=== PATIENT | female | born 1965 | race Caucasian/White ===

== ENCOUNTER 2016-11-08 07:27 | Day surgery (SDC) | payer MEDICAID, OTHER ==
--- NOTE | 2016-03-13 08:39 | PREOPHP ---
DATE OF ADMISSION: 03/16/2016 The patient is coming on 03/16/2016 for a procedure. HISTORY OF PRESENT ILLNESS: This is a 50-year-old female 1, para 1. This patient had been e valuated recently for pelvic dystrophy, vulvar dystrophy, and a cervical polyp with a history of fibr oids. Her last menstrual period was October 2015, and she has been having white discoloration of he r vulvar area and pubis. She had been treated with Elocon cream, and D and C hysteroscopy was advise d due to cervical polyp that was large and was possibly coming out of the uterus with an ultrasound s howing thick and complex endometrium with fluid and fixed exchanges. These findings were indetermina te, and a further study was estimated with a D and C hysteroscopy. The ultrasound otherwise found no rmal ovaries and the uterus to be slightly larger compared to prior examination and with the endometr ial hyperplasia. The patient had a vulvar excision biopsy that revealed that she had human papilloma virus effect and polyploid intradermal nevus. The patient had a history of having 1 , and she is on Omeprazole, Tylenol, and ranitidine. The patient is on medication for bowel movement and s ertraline for depression. She has been on Depo-Provera to avoid bleeding since she was seen perimeno pausal. REVIEW OF SYSTEMS: The patient has no urinary problems. No cardiovascular problems. No lung proble ms. No GI problems. No neurological or orthopedic problems nor endocrine problems. She had a histo ry of ulcers. ALLERGIES: SHE HAS NO ALLERGIES. SOCIAL HISTORY: She has no history of drug addiction, smoking, or drinking. FAMILY HISTORY: Noncontributory. PHYSICAL EXAMINATION: VITAL SIGNS: Blood pressure of 150/90, controlled with some medication with hydrochlorothiazide. Th e patient weighs 141. She is 5 feet tall. Pulse is 80. She is afebrile. HEAD AND NECK: Normal. CHEST: Clear. HEART: Normal sinus rhythm. LUNGS: Clear. BREASTS: Soft, nontender, no masses. ABDOMEN: Soft, nontender, no masses. PELVIC: External genitalia with some discoloration of the skin around the external vulval area and p ubic area. Vagina with atrophy. Cervix with polyps. Uterus with all fibroids retroverted, normal s ize. Adnexa are negative. RECTAL: Normal. EXTREMITIES: Normal. DIAGNOSES: 1. Endometrial hyperplasia. 2. Vulvar dystrophy. 3. All fibroid uterus. 4. Perimenopausal syndrome. PLAN: She is undergoing a D and C hysteroscopy to rule out malignancy. She has been advised of the possible risks and possible complications of the surgery with her alternatives and options. Written information was provided. She had no more questions and agreed to go ahead with the procedure with f ull understanding and no more questions. Dictated By: GANESH JACQUES/CECIL Conf#: [id number] DID#: [id number]
--- NOTE | 2016-11-04 07:07 | PREOPHP ---
DATE OF ADMISSION: 11/08/2016 HISTORY OF PRESENT ILLNESS: This is a 51-year-old female, 1, para 1. This patient has seen me lately with perimenopausal syndrome, with lots bleeding, a history of a very large uterus, and e ndometrial thickening with endometrial hyperplasia, cervical polyps and vulvar dystrophy. This pablito ent has been treated with a Depo shot, and still has not been able to stop her bleeding, and for all these reasons, she has been advised for a D and C hysteroscopy. The patient had a previous cesarea n section. MEDICATIONS: She is on: 1. Omeprazole. 2. Tylenol. 3. Ranitidine. 4. Valsartan. 5. Bisoprolol. ALLERGIES: SHE IS NOT ALLERGIC TO ANY MEDICATION. REVIEW OF SYSTEMS: She has no urinary symptoms. No cardiovascular problems. No lung problems. No GI, neurological, orthopedic, or endocrine problems. She has a history of ulcer, for which she is on ranitidine. She has been lately on depression medication, and Depo-Provera to avoid and control her bleeding. SOCIAL HISTORY: She does not drink or smoke. No history of drugs. FAMILY HISTORY: Noncontributory. PHYSICAL EXAMINATION: VITAL SIGNS: The blood pressure is 128/80. She weighs 142. She is 5 feet. She is afebrile. HEAD AND NECK: Normal. CHEST: Clear. HEART: Normal sinus rhythm. LUNGS: Clear. BREASTS: Soft, nontender, no masses. ABDOMEN: Soft, nontender, no masses. PELVIC: With discoloration of the skin around the external vulvar area and pubic area. Vaginal are a is with atrophy. Cervix with polyps. Uterus with fibroids, retroverted, normal size. Adnexa are negative. RECTAL: Normal. EXTREMITIES: Normal. DIAGNOSES: 1. Endometrial hyperplasia. 2. Fibroid uterus. 3. Vulvar dystrophy. 4. Perimenopausal syndrome. PLAN: She is undergoing a D and C hysteroscopy to rule out malignancy. She has been advised of the possible risks and possible complications of the surgery, with her alternatives and options. Lester en information was provided. She had no more questions and agreed to go ahead with the procedure wi th full understanding, and no more questions. Dictated By: GANESH CHRIS MD [facility] Conf#: [id number] [facility]#: [id number]
[~2016-11-08] VITALS: Ht 152.4 cm; Wt 63.7 kg
[2016-11-08] VITALS (17 sets, daily range): BP systolic 105–155; BP diastolic 71–109; PULSE 66–84; RESP 10–18; Ht 152.4 cm; Wt 63.7 kg
[~2016-11-08 07:27] MED LIST: ASPI-535 PO; CEFAZOLIN 1 GM INJ ONE; CEFAZOLIN 2 GM/50 ML (PMX) 50 ML IVPB ONE; GEMF600T60 PO; IBUP-1542 PO; LORA10TA3 PO; OMEP10CA4 PO; ONDANSETRON 4 MG INJ ONE; ORPH100T PO; RANI300T PO; SERT50TA6 PO
[2016-11-08] MEDS ORDERED: DEXTROSE 5%-0.9% NACL 1,000 ML IV SCH (08:30)
[2016-11-08] MEDS ORDERED: SERT50TA6 PO (08:48)
[2016-11-08] MEDS ORDERED: RANI300T3 PO (08:48)
[2016-11-08] MEDS ORDERED: DOCU-159 PO (08:48)
[2016-11-08] MEDS ORDERED: POLY17PO6 PO (08:48)
[2016-11-08] MEDS ORDERED: PANT40TA4 PO (08:48)
[2016-11-08] MEDS ORDERED: GEMF600T60 PO (08:48)
[2016-11-08] MEDS ORDERED: PROPOFOL 60 ML ONE (09:18)
[2016-11-08] MEDS ORDERED: FENTAnyl 50 MCG/ML VIAL ONE ×2 (09:19→10:27)
[2016-11-08] MEDS ORDERED: LIDOCAINE 2% (SDV) 5 ML INJ ONE (09:19)
[2016-11-08] MEDS ORDERED: DEXAMETHASONE 4 MG/ML 1 ML INJ ONE (09:44)
[2016-11-08] MEDS ORDERED: KETOROLAC 30 MG INJ ONE (09:55)
--- NOTE | 2016-11-08 10:13 | PD.PPDC ---
RENAL CASE MANAGER Discharge Instruction Condition Patient Condition: Good Diet Diet: Resume Regular Diet Activity/Restrictions Activity: Normal Activity May Shower Restrictions: No Exercising No Lifting No Driving No Sexual Activity Nothing in the Vagina No [place] No Tampons, douche Follow-up Follow-up with Physician: 2, Week/Weeks Return to clinic for HEADSTART TEACHER Instructions: Fever greater than 101 Chills Worsening abdominal pain Excessive Vaginal Bleeding More than 2 pads per hour Unable to tolerate diet GANESH CHRIS MD Nov 08, 2016 10:12
--- NOTE | 2016-11-08 10:17 | OPPN ---
Date/Time of Note Date/Time of Note DATE: 11/08/16 TIME: 10:14 Operative/Procedure Note FRACTIONAL D&C HYSTEROSCOPY Pre-Operative Diagnosis ENDOMETRIAL HYPERPLASIA FIBROID UTERUS Post-Operative Diagnosis SAME Surgeon: GANSEH CHRIS MD Estimated blood loss: minimal Specimens ENDOMETRIAL CURETTINGS AND CERVICAL POLYPS Complications: None Anesthesia type: general GANESH CHRIS MD Nov 08, 2016 10:17
[2016-11-08] MEDS ORDERED: ONDANSETRON 4 MG INJ IV PRN (10:30)
[2016-11-08] MEDS ORDERED: LABETALOL HCL 20MG INJ IV PRN (10:30)
[2016-11-08] MEDS ORDERED: MEPERIDINE 25 MG INJ IV PRN (10:30)
[2016-11-08] MEDS ORDERED: OXYCODONE/ACETAMINOPHEN (5/325) TAB PO PRN (10:30)
[2016-11-08] MEDS ORDERED: FENTAnyl 50 MCG/ML VIAL IV PRN ×2 (10:30)
[2016-11-08] MEDS ORDERED: KETOROLAC 30 MG INJ IV PRN (10:30)
[2016-11-08] MEDS: FENTAnyl 50 MCG/ML VIAL IV PRN ×2 (10:32→10:40)
--- NOTE | 2016-11-08 13:43 | RADRPT ---
Vent Rate: 65 bpm RR Interval: 0 msec ND Interval: 148 msec QRS Duration: 82 msec QT Interval: 384 msec QTC Interval: 399 msec P-R-T [place]: 53 - 91 - 49 degrees Normal sinus rhythm Nonspecific T wave abnormality Abnormal ECG Electronically Signed By: Reji Santiago [id number]
== END 2016-11-08 11:53 | disposition home or self-care (01) ==
LOC: SDS 07:27
PROVIDERS: ATTEND Obstetrics & Gynecology
DX: N85.00 Endometrial hyperplasia, unspecified (principal); D25.9 Leiomyoma of uterus, unspecified; N95.0 Postmenopausal bleeding
CPT/HCPCS: 58120; 88305; 93005; J0690; J1100; J1885; J2175; J2405; J3010; Z7512; Z7610

== ENCOUNTER 2017-04-14 06:16 | Emergency (ER) | payer OTHER ==
[~2017-04-14] VITALS: Ht 165.1 cm; Wt 66.0 kg
[~2017-04-14 06:16] MED LIST changes: -ASPI-535 PO; -CEFAZOLIN 1 GM INJ ONE; -CEFAZOLIN 2 GM/50 ML (PMX) 50 ML IVPB ONE; +DOCU-159 PO; -IBUP-1542 PO; -LORA10TA3 PO; -OMEP10CA4 PO; -ONDANSETRON 4 MG INJ ONE; -ORPH100T PO; +PANT40TA4 PO; +POLY17PO6 PO; -RANI300T PO; +RANI300T3 PO
[2017-04-14 06:23] VITALS: Ht 165.1 cm; Wt 66.0 kg
[2017-04-14 06:54] LABS: URINE BLOOD (Dip) POC 2+ (NEGATIVE)
[2017-04-14] MEDS ORDERED: IBUPROFEN 600 MG TAB PO ONE (08:00)
--- NOTE | 2017-04-14 08:21 | RADRPT ---
PROCEDURE: CT Abdomen and Pelvis without contrast. CLINICAL INDICATION: Abdominal pain. TECHNIQUE: CT scan of the abdomen and pelvis without contrast was performed on a multidetector hig h-resolution CT scanner. The patient was scanned without intravenous contrast. Coronal and sagittal reformatted images were obtained from the axial source images. Images were reviewed on a high-resol Fullscreen PACS workstation. One or more of the following dose reduction techniques were used: Automated exposure control, adjustment of the mA and/or kV according to patient size, use of iterative recon struction technique. The total exam CTDI equals 8.86 mGy and the total exam DLP equals 433.66 mGy-c m. COMPARISON: None. FINDINGS: CT abdomen: The lung bases are clear. The heart size is normal, without pericardial thickening or effusion. The liver is enlarged measuring 21.6 cm and diffusely hypoattenuating without evidence of focal mas s or intrahepatic biliary dilatation on this limited noncontrast exam. The spleen is normal in size and homogeneous in density. The stomach is grossly unremarkable. The pancreas as visualized is no rmal. The gallbladder and biliary tree are unremarkable and there is no evidence for biliary dilata tion. The adrenal glands are symmetric and normal. The kidneys are symmetrically unremarkable as w ell. No renal calculus or obstructive uropathy or mass lesion is seen. The aorta is of normal caliber. There is no retroperitoneal lymphadenopathy. The janiya hepatis reg ion is clear. The small bowel and mesentery, as visualized, are unremarkable. CT pelvis: The small bowel loops situated within the pelvis are unremarkable. The pelvic organs are normal. T he pelvic sidewalls and inguinal regions are clear. The sigmoid colon and rectum are unremarkable. The appendix is normal. No mass, lymphadenopathy, or free fluid is seen. No acute inflammation is s een. The surrounding osseous structures are unremarkable. No osteolytic or osteoblastic lesion is detec wilfred. IMPRESSION: 1. No abdominal or pelvic acute inflammatory process, mass, or lymphadenopathy. 2. Hepatomegaly and hepatic steatosis. RPTAT: AA .Rickie Aleman MD, Date Time Electronically viewed and signed by .Rickie Aleman MD, MD on 04/14/2017 08:21 .Florina
--- NOTE | 2017-04-14 10:50 | RADRPT ---
PROCEDURE: US Pelvis. CLINICAL INDICATION: pelvic pain TECHNIQUE: Multiple sonographic images of the pelvis were obtained utilizing a transabdominal quinton hnique. The images were reviewed on a PACS workstation. COMPARISON: CT from same day FINDINGS: The uterus is normal in size with a heterogeneous appearance of the myometrium. There is a complex mixed solid and cystic mass in the fundus of the uterus measuring 3.6 x 3.3 cm. The uterus measures 7.5 x 7.6 x 6.1 cm. The endometrial stripe is homogeneous in appearance and has the thickness of 4. 8 mm. The ovaries are normal in size and echogenicity. Normal Doppler flow is identified in both ovaries. The right ovary measures 2.0 x 1.3 x 1.5 cm. The left ovary measures 2.2 x 2.1 x 2.1 cm. There is a 1.8 cm simple cyst in the left ovary. No free fluid is present within the pelvis. RPTAT: AA IMPRESSION: Heterogeneous uterus with a large 3.6 cm mixed solid and cystic fibroid in the fundus of the uterus. Small simple cyst in the left ovary. .Yeyo Lora MD, MD Date Time Electronically viewed and signed by .Yeyo Lora MD, on 04/14/2017 10:49 .S/
[2017-04-14] MEDS ORDERED: IBUP-1542 PO (11:08)
[2017-04-14] MEDS ORDERED: TRAM50TA2 PO (11:08)
--- NOTE | 2017-04-14 11:11 | ERD ---
ER Documentation Chief Complaint Date/Time DATE: 04/14/17 TIME: 11:10 Chief Complaint Complains of pelvc pain x 3 weeks worsening today HPI This 51-year-old female presents with pelvic pain for last 3 weeks. It is in the suprapubic area. She denies any right or left sided pain. She denies any fevers, vomiting, bowel or bladder problems. She may have some dysuria. History significant for fibroid surgery a few months ago. ROS All systems reviewed and are negative except as per history of present illness. Medications Home Meds Active Scripts Ibuprofen* (Motrin*) 600 Mg Tab, 600 MG PO Q6, #20 TAB Prov:LI GRIER MD 04/14/17 Tramadol HCl (Tramadol HCl) 50 Mg Tablet, 50 MG PO Q4 Y for PAIN, #20 TAB Prov:LI GRIER MD 04/14/17 Reported Medications Ranitidine Hcl* (Zantac*) 300 Mg Tablet, 300 MG PO HS, #30 TAB 11/08/16 Pantoprazole* (Pantoprazole*) 40 Mg Tablet.dr, 40 MG PO DAILY, TAB 11/08/16 Gemfibrozil* (Gemfibrozil*) 600 Mg Tablet, 600 MG PO BID, TAB 11/08/16 Sertraline Hcl* (Sertraline Hcl*) 50 Mg Tablet, 50 MG PO DAILY, #30 TAB 11/08/16 Polyethylene Glycol* (Miralax*) 17 Gm Powd.pack, 17 GM PO DAILY, #30 PACKET 11/08/16 Docusate Sodium* (Docusate Sodium*) 100 Mg Capsule, 100 MG PO DAILY, #30 CAP 11/08/16 Allergies Allergies: Coded Allergies: No Known Drug Allergies (Verified Allergy, Unknown, 03/17/16) PMhx/Soc History of Surgery: Yes (C SECTION X 1) Anesthesia Reaction: No Hx Neurological Disorder: No Hx Respiratory Disorders: No Hx Cardiac Disorders: No Hx Psychiatric Problems: No Hx Miscellaneous Medical Probl: Yes (FIBROIDS, HIGH CHOLESTEROL) Hx Alcohol Use: No Hx Substance Use: No Hx Tobacco Use: No Physical Exam Vitals Vital Signs Date Time Temp Pulse Resp B/P Pulse Ox O2 Delivery O2 Flow Rate FiO2 04/14/17 06:23 98.0 71 20 142/80 97 Physical Exam Const: [], [id number]. Head: Atraumatic Eyes: Normal Conjunctiva ENT: Normal External Ears, Nose and Mouth. Neck: Full range of motion..~ No meningismus. Resp: Clear to auscultation bilaterally Cardio: Regular rate and rhythm, no murmurs Abd: Soft, minimal suprapubic tenderness. No tenderness at McBurney's point no rebound., non distended. Normal bowel sounds Skin: No petechiae or rashes Back: No midline or flank tenderness Ext: No cyanosis, or edema Neur: Awake and alert Psych: Normal Mood and Affect Results 24 hrs Laboratory Tests Test 04/14/17 06:57 Bedside Urine pH (LAB) 5.5 Bedside Urine Protein (LAB) Negative Bedside Urine Glucose (UA) Negative Bedside Urine Ketones (LAB) Negative Bedside Urine Blood 2+ Bedside Urine Nitrite (LAB) Negative Bedside Urine Leukocyte Esterase (L Negative Current Medications Medications (Trade) Dose Ordered Sig/Milo Route PRN Reason Start Time Stop Time Status Last Admin Dose Admin Ibuprofen (Motrin) 600 mg ONCE ONCE PO 04/14/17 08:00 04/14/17 08:01 DC 04/14/17 07:41 Tramadol HCl (Ultram) 50 mg ONCE ONCE PO 04/14/17 11:30 04/14/17 11:31 Procedures/MDM Urine shows hemoglobin without leukocytes, nitrites or glucose. CT abdomen pelvis shows no acute abnormalities according the radiologist. Pelvic ultrasound shows a 3 cm cystic fibroid. There is no evidence of torsion, acute findings. HCG is negative. Patient was given ibuprofen and tramadol for pain. Patient has pelvic pain of uncertain etiology. Suspicion is low for PID there is no evidence of tubo-ovarian abscess. There is no signs or symptoms of appendicitis, obstruction, acute abdomen. Her pain is likely from her fibroid I suspect. She will treated with tramadol ibuprofen further observation at home. The patient was stable with no new complaints during the ER course. Clinically, there is no current evidence to suggest meningitis, sepsis, acute abdomen, pneumonia, acute coronary syndrome, pulmonary embolism, or any other emergent condition appearing to require further evaluation or hospitalization. The patient should certainly return for any new or worsening symptoms per the aftercare instructions. They should otherwise follow-up with her primary care doctor for reevaluation this week. Departure Diagnosis: Primary Impression: Acute pain in female pelvis Condition: Stable Patient Instructions: Pelvic Pain, Unknown Cause, Uterine Fibroids Referrals: [employer] SOFTWARE DEVELOPMENT ENGINE[place] [id number] [facility] [address] [place] [address] OFFICE FAX , GANESH [address] [place] [address] [address] [place] [place] [address] [place] [address] [address] GE, [facility] [address], [address] [facility] [address] [address] [facility] [address] [place] [address] [address] [address] [place] [address] [facility] [id number] [address]ADLEY, [place] [address], [facility] [address] [address] BUTLER, [place] [address] [facility]. [address], [place] [address] [address], [place] [address] [place], [place] [id number] Additional Instructions: HAY UN FIRBROID QUE ES DE CAUSA DE DOLOR PROBABLAMENTE. Va al rosen doctor/ specialista para mas evaluacon en el proximo semana. posiblemente necesita autorizado de rosen doctor primario para specialista. Regresa para fiebre, o mas o nueva simptomas. LI GRIER MD Apr 14, 2017 11:11
[2017-04-14] MEDS ORDERED: traMADol 50 MG TAB PO ONE (11:30)
== END 2017-04-14 11:49 | disposition home or self-care (01) ==
LOC: FTE 06:16
DX: R10.2 Pelvic and perineal pain (principal)
CPT/HCPCS: 74176; 76830; 76856; 81003; Z7502; Z7610

== ENCOUNTER 2017-10-18 14:33 | Observation (INO) | payer OTHER ==
[~2017-10-18] VITALS: Ht 152.4 cm; Wt 64.1 kg
[~2017-10-18 14:33] MED LIST changes: +IBUP-1542 PO; +TRAM50TA2 PO
[2017-10-18] MEDS ORDERED: NITROGLYCERIN 2% 1 GM OINT PKT TD STA (16:05)
[2017-10-18] MEDS ORDERED: ASPIRIN 81 MG TAB PO STA (16:05)
[2017-10-18] MEDS ORDERED: ESTR-71 PO (16:28)
[2017-10-18] MEDS ORDERED: BISO5TAB21 PO (16:28)
[2017-10-18] MEDS ORDERED: NITROGLYCERIN (SL) 0.4 MG TAB SL PRN ×2 (16:30→21:00)
[2017-10-18] MEDS ORDERED: [UNRECOGNIZED DRUG - CODE] PO (16:30)
[2017-10-18] MEDS ORDERED: OXYB5TAB7 PO (16:31)
[2017-10-18] MEDS ORDERED: IMIP25TA3 PO (16:32)
--- NOTE | 2017-10-18 16:51 | RADRPT ---
PROCEDURE: XR Chest. CLINICAL INDICATION: Chest pain TECHNIQUE: A single portable view of the chest was obtained. COMPARISON: 03/17/2016 FINDINGS: The cardiomediastinal silhouette is within normal limits. The lungs and pleural spaces are clear. The soft tissues and osseous structures are unremarkable. IMPRESSION: No acute cardiopulmonary disease. RPTAT: HPNM Physician Adeola Date Time Electronically viewed and signed by Enrico Reece Physician on 10/18/2017 16:50 /
[2017-10-18 16:56] LABS: BASOPHIL # 0.1 10^3/ul (0.0-0.1); BASOPHILS % 0.8 % (0.0-2.0); EOSINOPHILS # 0.1 10^3/ul (0.0-0.5); EOSINOPHILS % 2.2 % (0.0-7.0); HEMATOCRIT 43.7 % (37.0-47.0); LYMPHOCYTES # 1.8 10^3/ul (0.8-2.9); LYMPHOCYTES % 30.3 % (15.0-51.0); MEAN CORPUSCULAR HEMOGLOBIN 25.3 pg (29.0-33.0); MONOCYTE # 0.4 10^3/ul (0.3-0.9); MONOCYTES % 6.6 % (0.0-11.0); NEUTROPHIL # 3.6 10^3/ul (1.6-7.5); NEUTROPHILS % 59.9 % (39.0-77.0); PLATELET COUNT 254 10^3/UL (140-415); RED BLOOD COUNT 5.53 10^6/ul (4.20-5.40); RED CELL DISTRIBUTION WIDTH 12.6 % (11.5-14.5)
[2017-10-18 17:16] LABS: ANION GAP 16 (8-16); BLOOD UREA NITROGEN 16 mg/dl (7-20); CALCIUM 9.7 mg/dl (8.4-10.2); CARBON DIOXIDE 28 mmol/L (21-31); CHLORIDE 102 mmol/L (97-110); CREATININE 0.75 mg/dl (0.44-1.00); GLUCOSE 85 mg/dl (70-220); POTASSIUM 3.9 mmol/L (3.5-5.1); SODIUM 142 mmol/L (135-144)
[2017-10-18 17:31] LABS: TROPONIN-I < 0.012 ng/ml (0.00-0.12)
[2017-10-18] MEDS ORDERED: ONDANSETRON 4 MG INJ IV PRN (19:30)
[2017-10-18] MEDS ORDERED: ACETAMINOPHEN 325 MG TAB PO PRN ×2 (19:30→21:00)
--- NOTE | 2017-10-18 19:42 | ERD ---
ER Documentation Chief Complaint Chief Complaint Complains of chest wall and epigastric pain HPI Patient is a 52-year-old female with diabetes and hypertension who presents with chest pain. She has left-sided chest pain and midsternal chest pain associated with shortness of breath. It is been going on for 1 week but is worsening. She tried Advil with no help. The pain was constant today and she describes it as a "pressure". ROS All systems reviewed and are negative except as per history of present illness. Medications Home Meds Reported Medications Imipramine Hcl* (Imipramine Hcl*) 25 Mg Tablet, 25 MG PO HS, TAB 10/18/17 Oxybutynin Chloride* (Ditropan*) 5 Mg Tablet, 5 MG PO DAILY, TAB 10/18/17 Loratadine* (Allergy Relief*) 10 Mg Tablet, 10 MG PO DAILY, TAB 10/18/17 Bisoprolol Fumarate* (Bisoprolol Fumarate*) 5 Mg Tablet, 5 MG PO DAILY, TAB 10/18/17 Estradiol (Gynodiol) 1 Mg Tablet, 1 MG PO DAILY, TAB 10/18/17 Pantoprazole* (Pantoprazole*) 40 Mg Tablet.dr, 40 MG PO DAILY, TAB 11/08/16 Discontinued Reported Medications Ranitidine Hcl* (Zantac*) 300 Mg Tablet, 300 MG PO HS, #30 TAB 11/08/16 Gemfibrozil* (Gemfibrozil*) 600 Mg Tablet, 600 MG PO BID, TAB 11/08/16 Sertraline Hcl* (Sertraline Hcl*) 50 Mg Tablet, 50 MG PO DAILY, #30 TAB 11/08/16 Polyethylene Glycol* (Miralax*) 17 Gm Powd.pack, 17 GM PO DAILY, #30 PACKET 11/08/16 Docusate Sodium* (Docusate Sodium*) 100 Mg Capsule, 100 MG PO DAILY, #30 CAP 11/08/16 Discontinued Scripts Ibuprofen* (Motrin*) 600 Mg Tab, 600 MG PO Q6, #20 TAB Prov:LI GRIER MD 04/14/17 Tramadol HCl (Tramadol HCl) 50 Mg Tablet, 50 MG PO Q4 Y for PAIN, #20 TAB Prov:LI GRIER MD 04/14/17 Allergies Allergies: Coded Allergies: No Known Drug Allergies (Verified Allergy, Unknown, 10/18/17) PMhx/Soc History of Surgery: Yes (C SECTION X 1) Anesthesia Reaction: No Hx Neurological Disorder: No Hx Respiratory Disorders: No Hx Cardiac Disorders: No Hx Psychiatric Problems: No Hx Miscellaneous Medical Probl: Yes (FIBROIDS, HIGH CHOLESTEROL) Hx Alcohol Use: No Hx Substance Use: No Hx Tobacco Use: No Smoking Status: Never smoker FmHx Family History: coronary disease Physical Exam Vitals Vital Signs Date Time Temp Pulse Resp B/P Pulse Ox O2 Delivery O2 Flow Rate FiO2 10/18/17 18:35 54 11 143/91 100 Nasal Cannula 1.0 10/18/17 16:54 52 18 152/87 98 Room Air 10/18/17 14:47 97.0 60 20 190/8 98 Physical Exam Const: No acute distress Head: Atraumatic Eyes: Normal Conjunctiva ENT: Normal External Ears, Nose and Mouth. Neck: Full range of motion..~ No meningismus. Resp: Clear to auscultation bilaterally Cardio: Regular rate and rhythm, no murmurs Abd: Soft, non tender, non distended. Normal bowel sounds Skin: No petechiae or rashes Back: No midline or flank tenderness Ext: No cyanosis, or edema Neur: Awake and alert Psych: Normal Mood and Affect Result Diagram: 10/18/17 1619 10/18/17 1619 Results 24 hrs Laboratory Tests Test 10/18/17 16:19 White Blood Count 6.010^3/ul Red Blood Count 5.5310^6/ul Hemoglobin 14.0g/dl Hematocrit 43.7% Mean Corpuscular Volume 79.0fl Mean Corpuscular Hemoglobin 25.3pg Mean Corpuscular Hemoglobin Concent 32.0g/dl Red Cell Distribution Width 12.6% Platelet Count 12955^3/UL Mean Platelet Volume 11.0fl Neutrophils % 59.9% Lymphocytes % 30.3% Monocytes % 6.6% Eosinophils % 2.2% Basophils % 0.8% Nucleated Red Blood Cells % 0.0/100WBC Neutrophils # 3.610^3/ul Lymphocytes # 1.810^3/ul Monocytes # 0.410^3/ul Eosinophils # 0.110^3/ul Basophils # 0.110^3/ul Nucleated Red Blood Cells # 0.010^3/ul Sodium Level 142mmol/L Potassium Level 3.9mmol/L Chloride Level 102mmol/L Carbon Dioxide Level 28mmol/L Anion Gap 16 Blood Urea Nitrogen 16mg/dl Creatinine 0.75mg/dl Glucose Level 85mg/dl Calcium Level 9.7mg/dl Troponin I < 0.012ng/ml Current Medications Medications (Trade) Dose Ordered Sig/Milo Route PRN Reason Start Time Stop Time Status Last Admin Dose Admin Aspirin (Aspirin) 162 mg ONCE STAT PO 10/18/17 16:05 10/18/17 16:06 DC 10/18/17 16:13 Nitroglycerin (Nitroglycerin 2% Oint) 1 inch ONCE STAT TD 10/18/17 16:05 10/18/17 16:06 DC 10/18/17 16:13 Nitroglycerin (Nitroglycerin (Sl Tab) 0.4 Mg) 1 tab Q5M UP TO 3 DOSES PRN SL CHEST PAIN 10/18/17 16:30 10/18/17 16:14 Ondansetron HCl (Zofran Inj) 4 mg ER BRIDGE PRN IV NAUSEA AND/OR VOMITING 10/18/17 19:30 10/19/17 19:29 Acetaminophen (Tylenol Tab) 650 mg ER BRIDGE PRN PO MILD PAIN/FEVER 10/18/17 19:30 10/19/17 19:29 Procedures/MDM EKG #1 read by me: Rate/Rhythm: Sinus bradycardia rate of 50 Intervals: Normal Impression: Sinus bradycardia without ischemia EKG #2 read by me: Rate/Rhythm: Sinus bradycardia rate of 52 Intervals: Normal Impression: Sinus bradycardia without ischemia Chest x-ray negative for pneumonia or pneumothorax per radiology. Patient is a 52-year-old female with cardiac risk factors who presents with chest pain. I am concerned for potential acute coronary syndrome. The patient was given aspirin and nitroglycerin. At this point I doubt pneumonia, pneumothorax, pulmonary embolism, or aortic dissection. The patient will be admitted to the care of the panel team. The patient will be admitted to a telemetry bed. Departure Diagnosis: Primary Impression: Chest pain Chest pain type: unspecified Qualified Code: R07.9 - Chest pain, unspecified type Condition: CLARISSA Mayo MD Oct 18, 2017 19:42
[2017-10-18] MEDS ORDERED: DOCUSATE SODIUM 100 MG CAP PO PRN (21:00)
[2017-10-18] MEDS ORDERED: hydrALAzine 20 MG INJ IV PRN (21:00)
[2017-10-18] MEDS ORDERED: NACL 0.9% 3 ML SYG IV SCH (21:00)
[2017-10-18] MEDS ORDERED: ONDANSETRON 4 MG TAB PO PRN (21:00)
[2017-10-18] MEDS ORDERED: BISACODYL (EC) 5 MG TAB PO PRN (21:00)
[2017-10-18] MEDS ORDERED: KETOROLAC 15 MG INJ IV ONE (21:28)
[2017-10-18 22:00] VITALS: TEMP 97
[2017-10-18 22:39] LABS: CREATINE KINASE 114 IU/L (23-200)
[2017-10-18 22:52] LABS: CK-MB 0.94 ng/ml (0.0-2.4)
[2017-10-18 22:56] LABS: TROPONIN-I < 0.012 ng/ml (0.00-0.12)
[2017-10-18 23:05] VITALS: Ht 152.4 cm; Wt 64.1 kg
[2017-10-18 23:19] VITALS: PULSE 56
--- NOTE | 2017-10-18 23:31 | HP ---
Date/Time of Note Date/Time of Note DATE: 10/18/17 TIME: 23:30 Assessment/Plan VTE Prophylaxis VTE Prophylaxis Intervention: SCD's Lines/Catheters [facility] Saline Lock Urinary Cath still in place: No Assessment/Plan Chief Complaint/Hosp Course This is a 52-year-old female being admitted to the telemetry floor for: #1 chest pain: Rule out ACS. Patient does have risk factors. At the current time will trend cardiac enzymes. First set was negative. Will check an echocardiogram in the a.m. Nitro patch/morphine as needed for pain. Will need cardiology consultation if indicated. #2 headache: This likely appears to be a tension headache which is now worse likely after Nitropatch. She did receive Tylenol in the ED which improved the headache. She does not have any focal deficits. She does not describes as the worst headache of her life. Continue to monitor this and consider imaging of the headache persists. Denies any vision changes. #3 prediabetes: Check hemoglobin A1c #4 hypertension: We will continue patient's home medications #5 hypertriglyceridemia: Check a lipid panel #6 urinary dysfunction: Continue patient's imipramine and oxybutynin #7 DVT GI prophylaxis: SCDs, home PPI Further treatment strategy will be implemented as per the clinical course Problems: HPI/ROS Admit Date/Time Admit Date/Time Oct 18, 2017 at 19:24 Hx of Present Illness cc: chest pain This is a 52-year-old female with diabetes and hypertension who presents with chest pain. She has left-sided chest pain and midsternal chest pain associated with shortness of breath. It is been going on for 1 week but is worsening. She tried Advil with no help. The pain was constant today and she describes it as a "pressure". Upon my examination she also is complaining of a headache. Which worsened with her nitro patch. Allergies: NKDA medications: See GIR[facility] THAO Const: As per HPI Eyes : No pain discharge or redness or change in visual acuity ENT: No pain, sore throat, congestion, congestion, dysphagia or discharge Respiratory: No shortness of breath, cough, sputum, wheezing, or pleuritic pain Cardiovascular: As per HPI GI : no change in appetite, abdominal pain, nausea, vomiting, diarrhea, constipation, or change in the color his stool Genitourinary: No dysuria, hematuria, flank pain , discharge or CVA tenderness Musculoskeletal: No joint pain, back pain, neck pain, restricted range of motion in neck or joints Skin: No rash, bruising or hives Neuro: No headache, dizziness, syncope, seizure, focal weakness Endocrine: No polyuria, polydipsia, temperature intolerance Psych: No hallucination, depression, anxiety or suicidal ideation PMH/Family/Social Past Medical History Prediabetes, hypertension, hypertriglyceridemia, urinary dysfunction Past Surgical History 1 Family History Significant Family History: no pertinent family hx Social History Alcohol Use: none Smoking Status: Never smoker Drug Use: none Exam/Review of Systems Vital Signs Vitals Vital Signs Date Time Temp Pulse Resp B/P Pulse Ox O2 Delivery O2 Flow Rate FiO2 10/18/17 23:19 56 10/18/17 22:00 97.0 14 139/94 100 Nasal Cannula 1.0 Exam Exam General: Patient is lying in bed in mild distress from chest pain, she also is reporting a headache HEENT: Atraumatic, normocephalic. The pupils are equal, round and reactive. Extraocular motor are intact Neck: Supple with full range of motion. No rigidity or meningismus Chest: Nontender Lungs: Clear to auscultation bilaterally no crackles rales or wheezing Heart: Sinus bradycardia, no overt murmurs appreciated Abdomen: Soft , nontender, nondistended , bowel sounds are present. No guarding no rebound tenderness , No masses or organomegaly. No costovertebral temporal angle mass Extremities: Normal to inspection, no edema no cyanosis Neurologic: Normal mental status, speech normal, cranial nerves II through XII are intact, motor and sensory are intact, no focal deficits, no focal weakness Additional Comments PROCEDURE: XR Chest. CLINICAL INDICATION: Chest pain TECHNIQUE: A single portable view of the chest was obtained. COMPARISON: 03/17/2016 FINDINGS: The cardiomediastinal silhouette is within normal limits. The lungs and pleural spaces are clear. The soft tissues and osseous structures are unremarkable. IMPRESSION: No acute cardiopulmonary disease. RPTAT: HPNM Physician Adeola Date Time Electronically viewed and signed by Enrico Reece Physician on 10/18/2017 16 :50 / CC: CLARISSA LOUIS MD EKG: Rate/Rhythm: Sinus bradycardia rate of 52 Intervals: Normal Impression: Sinus bradycardia without ischemia Above as per ED physician documentation Labs Result Diagram: 10/18/17 1619 10/18/17 1619 Medications Medications Current Medications Ondansetron HCl (Zofran Tab) 4 mg Q6H PRN PO NAUSEA AND/OR VOMITING; Start at 21:00 Nitroglycerin (Nitroglycerin (Sl Tab) 0.4 Mg) 1 tab Q5M PRN SL CHEST PAIN; Start 10/18/17 at 21:00 Acetaminophen (Tylenol Tab) 650 mg Q6H PRN PO PAIN LEVEL 1-3 OR FEVER; Start 10/18/17 at 21:00 Morphine Sulfate (morphine) 2 mg Q4H PRN IV PAIN LEVEL 7-10; Start 10/18/17 at 21:00 Docusate Sodium (Colace) 100 mg Q12H PRN PO CONSTIPATION; Start 10/18/17 at 21 :00 Bisacodyl (Dulcolax) 5 mg DAILY PRN PO CONSTIPATION; Start 10/18/17 at 21:00 Hydralazine HCl (Apresoline) 10 mg Q4H PRN IV ELEVATED BLOOD PRESSURE; Start 10/18/17 at 21:00 EBONY ZEPEDA Oct 18, 2017 23:31
[2017-10-18 23:43] VITALS: BP 138/90; RESP 20
[2017-10-19] VITALS (13 sets, daily range): BP systolic 105–128; BP diastolic 64–80; PULSE 51–62; RESP 16–20
[2017-10-19] MEDS: morphine 2 MG INJ IV PRN ×2 (00:26→06:00)
[2017-10-19 06:48] LABS: BASOPHIL # 0.1 10^3/ul (0.0-0.1); BASOPHILS % 0.7 % (0.0-2.0); EOSINOPHILS # 0.1 10^3/ul (0.0-0.5); EOSINOPHILS % 1.7 % (0.0-7.0); HEMATOCRIT 40.9 % (37.0-47.0); HEMOGLOBIN 13.3 g/dl (12.0-16.0); LYMPHOCYTES # 1.2 10^3/ul (0.8-2.9); LYMPHOCYTES % 16.8 % (15.0-51.0); MEAN CORPUSCULAR HEMOGLOBIN 25.8 pg (29.0-33.0); MEAN CORPUSCULAR HGB CONC 32.5 g/dl (32.0-37.0); MEAN CORPUSCULAR VOLUME 79.3 fl (82.0-101.0); MEAN PLATELET VOLUME 11.1 fl (7.4-10.4); MONOCYTE # 0.4 10^3/ul (0.3-0.9); MONOCYTES % 5.8 % (0.0-11.0); NEUTROPHIL # 5.4 10^3/ul (1.6-7.5); NEUTROPHILS % 74.7 % (39.0-77.0); PLATELET COUNT 239 10^3/UL (140-415); RED BLOOD COUNT 5.16 10^6/ul (4.20-5.40); RED CELL DISTRIBUTION WIDTH 12.9 % (11.5-14.5); WHITE BLOOD COUNT 7.3 10^3/ul (4.8-10.8)
[2017-10-19 07:01] LABS: CREATINE KINASE 84 IU/L (23-200)
[2017-10-19 07:11] LABS: CK-MB 0.71 ng/ml (0.0-2.4)
[2017-10-19 07:13] LABS: TROPONIN-I < 0.012 ng/ml (0.00-0.12)
[2017-10-19 07:15] LABS: ALBUMIN/GLOBULIN RATIO 1.53; BILIRUBIN,INDIRECT 1.1 mg/dl (0-1.1); BILIRUBIN,TOTAL 1.1 mg/dl (0.2-1.3); CALCIUM 9.5 mg/dl (8.4-10.2); CHOL/HDL RATIO 6.4 RATIO; CREATININE 0.73 mg/dl (0.44-1.00); TOTAL PROTEIN 6.6 g/dl (6.1-8.1)
[2017-10-19 07:31] LABS: THYROID STIMULATING HORMONE 5.83 MIU/L (0.465-4.680)
[2017-10-19] MEDS: OXYBUTYNIN 5 MG TAB PO SCH (09:09)
[2017-10-19] MEDS: PANTOPRAZOLE (EC) 40 MG TAB PO SCH (09:09)
[2017-10-19] MEDS: LORATADINE 10 MG TAB PO SCH (09:09)
[2017-10-19] MEDS: ESTRADIOL 1 MG TAB PO SCH (09:47)
[2017-10-19] MEDS: BISOPROLOL 5 MG TAB PO SCH (09:48)
--- NOTE | 2017-10-19 12:24 | RADRPT ---
Echocardiogram Report Patient Name: MANISHA CHUNG Gender: Female Date: 1965 Study Date: 19-Oct-2017 Diabetes Nurse: KEILA Location: 525 Ref. Physician: EBONY ZEPEDA Quality: Good Procedures: Transthoracic echocardiogram with complete 2D, M-Mode, and doppler examination. Indications: Chest Pain. 2D/M Mode Doppler Measurement Value Normal Ranges Measurement Value Normal Ranges AoR Diam MM 2.6 cm ANGELI Vmax 2.1 cm2 ACS MM 1.8 cm ANGELI VTI 2.1 cm2 LA/Ao MM 1.3 AV Mean Cosme 1.0 m/sec LA Dimen MM 3.2 cm AV Mean PG 4.1 mmHg LVIDd 2D 4.4 3.5 - 5.6 cm AV Peak Cosme 1.3 m/sec LVIDs 2D 2.8 2.1 - 4.1 cm AV Peak PG 6.9 mmHg LVPWd 2D 1.0 0.6 - 1.1 cm AV VTI 28.8 cm IVSd 2D 1.0 0.6 - 1.1 cm LVOT Peak Cosme 1.0 m/sec EDV 2D 89.2 cm3 LVOT Peak PG 3.8 mmHg ESV 2D 23.1 cm3 MV E Peak Cosme 0.4 m/sec EF 2D 65.0 50.0 - 65.0 % MV A Peak Cosme 0.7 m/sec LVOT Diam 1.9 cm MV E/A 0.6 MV Decel Time 200 msec MV Decel Hickman 2 MV E/A 0.6 TR Peak Cosme 2.3 m/sec TR Peak PG 21.7 mmHg RVSP 25.0 mmHg RA Pressure 3.0 Findings Left Ventricle: Normal left ventricular systolic function. Normal left ventricular cavity size. Normal left ventricular wall thickness. Ejection fraction is visually estimated at 65 %. Right Ventricle: Normal right ventricular size. Normal right ventricular systolic function. Left Atrium: The left atrium is normal in size. Right Atrium: The right atrium is normal in size. Mitral Valve: Normal appearance and function of the mitral valve with trace physiologic regurgitation. Aortic Valve: Normal appearance of the aortic valve. No significant aortic stenosis or insufficiency. Tricuspid Valve: Normal appearance of the tricuspid valve. Normal right ventricular systolic pressure. Estimated peak PA systolic pressure 25 mmHg. There is trace tricuspid regurgitation. Pericardium: Normal pericardium with no significant pericardial effusion. Aorta: Normal aortic root. IVC: Normal size and normal respiratory collapse consistent with normal right atrial pressure. Conclusions Normal left ventricular systolic function. Normal left ventricular cavity size. Normal left ventricular wall thickness. Ejection fraction is visually estimated at 65 %. Normal appearance and function of the mitral valve with trace physiologic regurgitation. Normal appearance of the aortic valve. No significant aortic stenosis or insufficiency. Normal appearance of the tricuspid valve. Normal right ventricular systolic pressure. Estimated peak PA systolic pressure 25 mmHg. There is trace tricuspid regurgitation. Electronically Signed By: John Franco 19-Oct-2017 12:23:37 -0800 Patient Name: MANISHA CHUNG Study Date: 19-Oct-[id number]
--- NOTE | 2017-10-19 15:07 | PN ---
Date/Time of Note Date/Time of Note DATE: 10/19/17 TIME: 15:06 Assessment/Plan VTE Prophylaxis VTE Prophylaxis Intervention: heparin Lines/Catheters [facility] Saline Lock Urinary Cath still in place: No Assessment/Plan Problems: (1) Chest pain Status: Acute Comment: She is ruled out for myocardial injury. Based on her history of believe that this is actually a reflux esophagitis which can sound very close to cardiac but is in her case noncardiac. We will continue observation and place her on some GI medications. If she is stable in the morning she will be discharged directly and have an outpatient GI follow-up. Qualifiers: Chest pain type: unspecified Qualified Code: R07.9 - Chest pain, unspecified type Subjective 24 Hr Interval Summary Free Text/Dictation Pleasant woman watching television in bed. She reports she is still having some symptoms but describes them as below Constitutional: no complaints Respiratory: no complaints Cardiovascular: other (Retrosternal linear chest pain reaching from the stomach straight up to the sternal notch. Associated with a sensation of acid) Genitourinary: no complaints Exam/Review of Systems Vital Signs Vitals Vital Signs Date Time Temp Pulse Resp B/P Pulse Ox O2 Delivery O2 Flow Rate FiO2 10/19/17 12:06 59 10/19/17 11:18 98.2 16 128/78 94 10/18/17 22:00 Nasal Cannula 1.0 Intake and Output 10/18/17 10/18/17 10/19/17 15:00 23:00 07:00 Intake Total 400 ml Balance 400 ml Exam Constitutional: alert, oriented Respiratory: clear to auscultation, normal air movement Cardiovascular: nl pulses, regular rate and rhythm Gastrointestinal: nl liver, spleen, non-tender, soft Results Result Diagram: 10/19/17 0530 10/19/17 0530 Results 24 hrs Laboratory Tests Test 10/18/17 16:19 10/18/17 22:04 10/19/17 05:30 White Blood Count 6.0 7.3 # Red Blood Count 5.53 H 5.16 Hemoglobin 14.0 13.3 Hematocrit 43.7 40.9 Mean Corpuscular Volume 79.0 L 79.3 L Mean Corpuscular Hemoglobin 25.3 L 25.8 L Mean Corpuscular Hemoglobin Concent 32.0 32.5 Red Cell Distribution Width 12.6 12.9 Platelet Count 254 239 Mean Platelet Volume 11.0 #H 11.1 H Neutrophils % 59.9 74.7 Lymphocytes % 30.3 16.8 Monocytes % 6.6 5.8 Eosinophils % 2.2 1.7 Basophils % 0.8 0.7 Nucleated Red Blood Cells % 0.0 0.0 Neutrophils # 3.6 5.4 Lymphocytes # 1.8 1.2 Monocytes # 0.4 0.4 Eosinophils # 0.1 0.1 Basophils # 0.1 0.1 Nucleated Red Blood Cells # 0.0 0.0 Sodium Level 142 141 Potassium Level 3.9 4.0 Chloride Level 102 103 Carbon Dioxide Level 28 29 Anion Gap 16 13 Blood Urea Nitrogen 16 18 Creatinine 0.75 0.73 Glucose Level 85 91 Calcium Level 9.7 9.5 Troponin I < 0.012 < 0.012 < 0.012 Creatine Kinase 114 84 Creatine Kinase Index 0.8 0.8 Creatinine Kinase MB (Mass) 0.94 0.71 Hemoglobin A1c 5.9 Magnesium Level 2.0 Total Bilirubin 1.1 Direct Bilirubin 0.00 Indirect Bilirubin 1.1 Aspartate Amino Transf (AST/SGOT) 26 Alanine Aminotransferase (ALT/SGPT) 49 Alkaline Phosphatase 50 Total Protein 6.6 Albumin 4.0 Globulin 2.60 Albumin/Globulin Ratio 1.53 Triglycerides Level 190 H Cholesterol Level 199 LDL Cholesterol, Calculated 130 HDL Cholesterol 31 L Cholesterol/HDL Ratio 6.4 Thyroid Stimulating Hormone (TSH) 5.830 H Medications Medications Current Medications Ondansetron HCl (Zofran Tab) 4 mg Q6H PRN PO NAUSEA AND/OR VOMITING; Start at 21:00 Nitroglycerin (Nitroglycerin (Sl Tab) 0.4 Mg) 1 tab Q5M PRN SL CHEST PAIN; Start 10/18/17 at 21:00 Acetaminophen (Tylenol Tab) 650 mg Q6H PRN PO PAIN LEVEL 1-3 OR FEVER; Start 10/18/17 at 21:00 Morphine Sulfate (morphine) 2 mg Q4H PRN IV PAIN LEVEL 7-10 Last administered on 10/19/17t 06:00; Admin Dose 2 MG; Start 10/18/17 at 21:00 Docusate Sodium (Colace) 100 mg Q12H PRN PO CONSTIPATION; Start 10/18/17 at 21 :00 Bisacodyl (Dulcolax) 5 mg DAILY PRN PO CONSTIPATION; Start 10/18/17 at 21:00 Hydralazine HCl (Apresoline) 10 mg Q4H PRN IV ELEVATED BLOOD PRESSURE; Start 10/18/17 at 21:00 Bisoprolol Fumarate (Zebeta) 5 mg DAILY PO Last administered on 10/19/17 09: 48; Admin Dose 5 MG; Start 10/19/17 at 09:00 Estradiol (Estrace) 1 mg DAILY PO Last administered on 10/19/17 09:47; Admin Dose 1 MG; Start 10/19/17 at 09:00 Imipramine HCl (Tofranil) 25 mg HS PO ; Start 10/19/17 at 21:00 Loratadine (Claritin) 10 mg DAILY PO Last administered on 10/19/17 09:09; Admin Dose 10 MG; Start 10/19/17 at 09:00 Oxybutynin Chloride (Ditropan) 5 mg DAILY PO Last administered on 10/19/17 09 :09; Admin Dose 5 MG; Start 10/19/17 at 09:00 Pantoprazole (Protonix Tab) 40 mg DAILY@06 PO Last administered on 10/19/17 09:09; Admin Dose 40 MG; Start 10/19/17 at 09:00 MARGRET BODUREAUX MD Oct 19, 2017 15:07
[2017-10-19] MEDS ORDERED: SUCRALFATE 1 GM TAB PO ONE (15:30)
[2017-10-19] MEDS: AL HYDROX/MG TRISILICATE TAB PO SCH ×2 (16:35→22:37)
[2017-10-19] MEDS ORDERED: IMIPRAMINE 25 MG TAB PO SCH (21:00)
[2017-10-20] VITALS (7 sets, daily range): BP systolic 95–152; BP diastolic 52–83; PULSE 60–71; RESP 18–20
[2017-10-20] MEDS: PANTOPRAZOLE (EC) 40 MG TAB PO SCH (05:48)
[2017-10-20] MEDS: LORATADINE 10 MG TAB PO SCH (08:16)
[2017-10-20] MEDS: AL HYDROX/MG TRISILICATE TAB PO SCH ×2 (08:16→12:47)
[2017-10-20] MEDS: ESTRADIOL 1 MG TAB PO SCH (08:16)
[2017-10-20] MEDS: OXYBUTYNIN 5 MG TAB PO SCH (08:16)
[2017-10-20] MEDS: BISOPROLOL 5 MG TAB PO SCH (08:17)
--- NOTE | 2017-10-20 10:10 | DS ---
Date/Time of Note Date/Time of Note DATE: 10/20/17 TIME: 10:08 Discharge Summary Admission/Discharge Info Admit Date/Time Oct 18, 2017 at 19:24 Discharge Date/Time October 20, 2017 Discharge Diagnosis Noncardiac chest pain; reflux esophagitis; Patient Condition: Good Procedures Echocardiogram; rule out WA protocol Hx of Present Illness Hx of Present Illness cc: chest pain This is a 52-year-old female with diabetes and hypertension who presents with chest pain. She has left-sided chest pain and midsternal chest pain associated with shortness of breath. It is been going on for 1 week but is worsening. She tried Advil with no help. The pain was constant today and she describes it as a "pressure". Upon my examination she also is complaining of a headache. Which worsened with her nitro patch. Allergies: NKDA medications: See [facility] Course Charming 52-year-old female admitted with chest pain. She had normal echocardiogram normal EKG and had a normal rule out WA protocol by enzymes. On repeat review of systems she has symptoms more consistent with gastroesophageal reflux disease with reflux esophagitis. Treatment with esophageal medications resulted in clinical improvement and stability. She is now stable for discharge home. She is to follow-up with a planning manager due to the reflux esophagitis for a single look. Will be arranged by her primary care physician. Home Meds Reported Medications Imipramine Hcl* (Imipramine Hcl*) 25 Mg Tablet, 25 MG PO HS, TAB 10/18/17 Oxybutynin Chloride* (Ditropan*) 5 Mg Tablet, 5 MG PO DAILY, TAB 10/18/17 Loratadine* (Allergy Relief*) 10 Mg Tablet, 10 MG PO DAILY, TAB 10/18/17 Bisoprolol Fumarate* (Bisoprolol Fumarate*) 5 Mg Tablet, 5 MG PO DAILY, TAB 10/18/17 Estradiol (Gynodiol) 1 Mg Tablet, 1 MG PO DAILY, TAB 10/18/17 Pantoprazole* (Pantoprazole*) 40 Mg Tablet.dr, 40 MG PO DAILY, TAB 11/08/16 Discontinued Reported Medications Ranitidine Hcl* (Zantac*) 300 Mg Tablet, 300 MG PO HS, #30 TAB 11/08/16 Gemfibrozil* (Gemfibrozil*) 600 Mg Tablet, 600 MG PO BID, TAB 11/08/16 Sertraline Hcl* (Sertraline Hcl*) 50 Mg Tablet, 50 MG PO DAILY, #30 TAB 11/08/16 Polyethylene Glycol* (Miralax*) 17 Gm Powd.pack, 17 GM PO DAILY, #30 PACKET 11/08/16 Docusate Sodium* (Docusate Sodium*) 100 Mg Capsule, 100 MG PO DAILY, #30 CAP 11/08/16 Discontinued Scripts Ibuprofen* (Motrin*) 600 Mg Tab, 600 MG PO Q6, #20 TAB Prov:LI GRIER MD 04/14/17 Tramadol HCl (Tramadol HCl) 50 Mg Tablet, 50 MG PO Q4 Y for PAIN, #20 TAB Prov:LI GRIER MD 04/14/17 Follow-up Plan Primary care physician within 1 week to help refer and recommend gastroenterology consult Primary Care Provider Aury Sy Time spent on discharge: > 30 minutes MARGRET BOUDREAUX MD Oct 20, 2017 10:10
--- NOTE | 2017-10-20 10:11 | PDOCDIS ---
Discharge Instructions DIAGNOSIS Discharge Diagnosis Noncardiac chest pain; reflux esophagitis; CONDITION Patient Condition: Good HOME CARE INSTRUCTIONS: Special Diet: low cholesterol, low fat ACTIVITY: Activity Restrictions: No Restrictions FOLLOW UP/APPOINTMENTS Follow-up Plan Primary care physician within 1 week to help refer and recommend gastroenterology consult MARGRET BOUDREAUX MD Oct 20, 2017 10:11
[2017-10-20] MEDS ORDERED: SUCR1TAB56 PO (10:12)
== END 2017-10-20 13:38 | disposition home or self-care (01) ==
LOC: E/R 14:33 → TEL 19:24
PROVIDERS: ADMIT Family Medicine; ATTEND Family Medicine
DX: R07.89 Other chest pain (principal); K21.0 Gastro-esophageal reflux disease with esophagitis; E11.9 Type 2 diabetes mellitus without complications; I10 Essential (primary) hypertension; E78.00 Pure hypercholesterolemia, unspecified; E78.1 Pure hyperglyceridemia; R51 Headache; Z82.49 Family history of ischemic heart disease and other diseases of the circulatory system
CPT/HCPCS: 36415; 71010; 80048; 80053; 80061; 82550; 82553; 83036; 83735; 84443; 84484; 85025; 93005; 93306; 96374; J1885; J2270; Z7500; Z7502; Z7610; G0378

== ENCOUNTER 2018-04-14 05:42 | Day surgery (SDC) | END 2018-04-14 14:56 | disposition home or self-care (01) ==

== ENCOUNTER 2018-06-27 09:05 | Day surgery (SDC) | END 2018-06-27 11:34 | disposition home or self-care (01) ==